=== PATIENT | female | born 1985 | race Two or more races ===

== ENCOUNTER 2016-07-13 04:26 | Day surgery (SDC) | payer BC ==
[~2016-07-13] VITALS: Ht 152.4 cm; Wt 53.0 kg
--- NOTE | ~2016-07-13 | HP ---
[facility] 31 Y [address] ROOM: [place] [address] LOCATION: [facility] ADMIT DATE: 07/13/2016 History & Physical DISCHARGE DATE: FAMILY PHYSICIAN: Tabitha Macedo MD ATTENDING PHYSICIAN: ELIDIA SUMMERS DATE OF SERVICE: CHIEF COMPLAINT: Right flank pain. HISTORY OF PRESENT ILLNESS: The patient is a pleasant, 31-year-old female who presents to Outpatient Surgery today for placement of indwelling right ureteral stent. The patient had been seen earlier this morning and discharged from the emergency room. She had presented with right flank pain which started around 2 a.m. this morning. She was also found to have a urinary tract infection with nitrite- positive urinalysis. She was given a dose of ceftriaxone in the emergency room and discharged from the emergency room over here to Outpatient Surgery. The patient has also underwent a CT scan and was found to have an obstructing distal 4 mm right ureteral calculus with associated hydronephrosis. She also had a very small nonobstructing right renal calculus as well. The patient denies any prior history of nephrolithiasis and denies any gross hematuria. She denies any fevers or chills. She did have a normal white blood cell count in the emergency room today. The patient is recently 3 months . The patient has no other concerns or complaints at this time. PAST MEDICAL HISTORY: Denies any significant past medical illnesses. PAST SURGICAL HISTORY: No prior surgery. FAMILY HISTORY: Denies any known family history of genitourinary abnormalities. SOCIAL HISTORY: The patient works as a schoolteacher. The patient otherwise denies any current tobacco or alcohol abuse. ALLERGIES: NO KNOWN DRUG ALLERGIES. REVIEW OF SYSTEMS: A full 89-kbdx-tlpmb review of systems was performed with pertinent positive and negative findings included in the History of Present Illness. All other systems were reviewed and are otherwise negative. PATIENT'S NAME: LISS HERBERTLA Cara [facility] AGE: 31 Y [address] ROOM: [place] [address] LOCATION: [facility] ADMIT DATE: 07/13/2016 History & Physical DISCHARGE DATE: FAMILY PHYSICIAN: Tabitha Macedo MD ATTENDING PHYSICIAN: ELIDIA SUMMERS MEDICATIONS: See attached medication list. PHYSICAL EXAMINATION: VITAL SIGNS: Stable. CONSTITUTIONAL: No acute distress. Hemodynamically stable. HEENT: Extraocular muscles intact. Mucous membranes moist. No drainage per ears or nose. CARDIAC: Good peripheral perfusion. RESPIRATORY: No audible wheezing or stridor, and respirations do not appear labored. ABDOMEN: Soft and nontender. PSYCHIATRIC: Normal affect and answers questions appropriately. HEMATOLOGIC: No active sites of bruising or bleeding. IMAGING: I personally reviewed the images of her recent CT scan with findings consistent with that above in the History of Present Illness. IMPRESSION: 1. Right 4 mm distal ureteral calculus. 2. Urinary tract infection. PLAN: I had a long discussion today with the patient regarding her treatment options along with their risks, benefits, indications, and alternatives. Given the obstructing ureteral calculus in the setting of urinary tract infection, I did recommend decompression with cystoscopy and stent placement. I also explained that we would not be treating the stone with ureteroscopy in the setting of urinary tract infection, but rather bring her back at a later date after she has been completely treated with the antibiotic. The patient's questions and concerns were addressed, and she has no further at this time, would like to proceed, and consents freely. ELIDIA SUMMERS MD GP/modl /[id number] PATIENT'S NAME: EDY HERBERT [facility] AGE: 31 Y [address] ROOM: [place] [address] LOCATION: [facility] ADMIT DATE: 07/13/2016 History & Physical DISCHARGE DATE: FAMILY PHYSICIAN: Tabitha Macedo MD ATTENDING PHYSICIAN: ELIDIA SUMMERS CC: Tabitha Macedo MD D: [id number] T: HISTORY & PHYSICAL
--- NOTE | ~2016-07-13 | OR ---
PATIENT'S NAME: EDY HERBERT [facility] AGE: 31 Y [address] ROOM: [address] [address] LOCATION: [facility] ADMIT DATE: 07/13/2016 OR/Procedure Report DISCHARGE DATE: FAMILY PHYSICIAN: Tabitha Macedo MD ATTENDING PHYSICIAN: ELIDIA GUILLEN SURGEON: Elidia Guillen MD FINANCIAL SERVICE REPRESENTATIVE: None. DATE OF PROCEDURE: 07/13/2016 PREOPERATIVE DIAGNOSES: 1. Urinary tract infection. 2. Right distal ureteral calculus. POSTOPERATIVE DIAGNOSES: 1. Urinary tract infection. 2. Right distal ureteral calculus. OPERATIVE PROCEDURES: Cystoscopy with placement of indwelling right ureteral stent. ANESTHESIA ADMINISTERED: Monitored anesthesia care. HISTORY OF PRESENT ILLNESS: The patient is a pleasant 31-year-old female with no prior history of nephrolithiasis, who had presented with right flank pain. She was found to have a 4 mm obstructing distal right ureteral calculus in the setting of urinary tract infection. The patient was explained the risks, benefits, indications, and alternatives to the above procedure, and wished to proceed and consented freely. DESCRIPTION OF OPERATION: The patient was brought back to the operating room where she was placed on the OR table in a supine position. A surgical time- out was called where patient identification, surgical site, and procedure were then verified. We also did verify that the patient received an IV Rocephin antibiotic prior to beginning the procedure. The patient then underwent successful administration of monitored anesthesia care. The patient then moved and placed in a low lithotomy position where she was then prepped and draped in the usual sterile fashion. I began by advancing a rigid cystoscope easily into the patient's urinary bladder. Her urethra was within normal limits. Full white cystoscopy was performed and her bladder was negative for any bladder tumors, cellules, or diverticula. Her ureteral orifices were noted to be in their orthotopic location. I then advanced a Sensor guidewire carefully navigating the wire past the level of the obstructing ureteral calculus. Then, over the wire, I advanced a 4.8-Luxembourger multi-length right ureteral stent deploying it noting a good curl fluoroscopically in the patient's right renal pelvis as well as a good curl visually in the patient's bladder. The patient did tolerate the procedure well. I then emptied the patient's bladder and the patient was then taken out of the lithotomy position PATIENT'S NAME: EDY HERBERT [facility] AGE: 31 Y [address] ROOM: [address] [address] LOCATION: [facility] ADMIT DATE: 07/13/2016 OR/Procedure Report DISCHARGE DATE: FAMILY PHYSICIAN: Tabitha Macedo MD ATTENDING PHYSICIAN: ELIDIA GUILLEN where she was awoken from monitored anesthesia care, transferred to recovery bed and transported to recovery room in good condition. COMPLICATIONS: None. DRAINS: Indwelling 4.8-Luxembourger multi-length right ureteral stent. SPECIMENS: None. FOLLOWUP PLAN: We will plan to discharge the patient home today from recovery on an antibiotic. We will then plan to see her back in approximately 10-14 days for definitive treatment of her ureteral stone with right ureteroscopy, laser lithotripsy, and stent exchange. ELIDIA GUILLEN MD GP/modl /[id number] d: 07/13/167 t: 07/21/162013, OPERATIVE SUMMARY
--- NOTE | ~2016-07-13 | ER ---
[facility] 31 Y [address] ROOM: [place] [address] LOCATION: [facility] ADMIT DATE: 07/13/2016 ER/Outpatient Report DISCHARGE DATE: FAMILY PHYSICIAN: Tabitha Macedo MD ATTENDING PHYSICIAN: ELIDIA SUMMERS Admission date and time documented on the medical record. I saw the patient at 0440 hours. CHIEF COMPLAINT: Right lower quadrant abdominal pain. HISTORY OF PRESENT ILLNESS: The patient is a 31-year-old female who comes in with onset of right lower quadrant abdominal pain that woke up her out of sleep around 0200 hours. Pain is located in the right lower quadrant. The patient has some nausea, but no vomiting. She had 2 episodes of diarrhea. No urinary frequency, urgency, or dysuria. No fever, chills, or sweats. No recent coughs, colds, or flus. No lightheadedness, dizziness, syncope, or near syncope. No headache or eyes, ears, nose, throat, neck, or spine pain. No chest pain or shortness of breath. No joint or muscle swelling, redness, or pain. No skin eruptions or rash. No neurologic changes, psychiatric issues, or endocrine problems. The patient is 3 months post vaginal delivery, . The patient is . No history of abdominal surgeries. HOME MEDICATIONS: See attached medication list. ALLERGIES: NONE. SOCIAL HISTORY: Nonsmoker, nondrinker. SIGNIFICANT PAST MEDICAL HISTORY: Negative. OPERATIONS: None. REVIEW OF SYSTEMS: All systems reviewed by me are negative with the exception of those discussed in the History of Present Illness. PHYSICAL EXAMINATION: VITAL SIGNS: Temperature 97.5, pulse 115, respirations 16, blood pressure 160/77, and O2 saturation on room air is 92%. PATIENT'S NAME: PIEDAD [facility] AGE: 31 Y [address] ROOM: [place] [address] LOCATION: [facility] ADMIT DATE: 07/13/2016 ER/Outpatient Report DISCHARGE DATE: FAMILY PHYSICIAN: Tabitha Macedo MD ATTENDING PHYSICIAN: ELIDIA SUMMERS HEENT: Head: Normocephalic. Eyes, Ears, Nose, and Throat: Clear. Mucous membranes moist. NECK: Negative. SPINE: Negative. LUNGS: Clear. No rales, rhonchi, or wheezes. HEART: Regular. Pulses are palpable. ABDOMEN: Soft. Some tenderness in the right lower quadrant, does guard there mildly. No CVA tenderness. No distention. EXTREMITIES: Intact. NEUROVASCULAR: Intact. SKIN: Clear. No skin eruptions or rash. LABORATORY DATA: CMS was normal except for a slightly low potassium of 3.4, low calcium of 7.8. Lactate 0.8. White count was 8600, segs 78, lymphs 14, monos 6, and eosinophils 1; hemoglobin is 12.1 with hematocrit 38.0; and platelet count was 194,000. Urine showed 5 to 10 whites, full-field reds, 0 to 2 epithelial cells, few bacteria, 2+ mucus per high-powered field, and positive nitrites. EMERGENCY DEPARTMENT COURSE: I did start the patient on IV normal saline and fluids. Gave her Zofran for nausea and vomiting, morphine IV for pain. The patient was sent to CT scan for CT scan of the abdomen and pelvis with IV contrast, results pending. IMPRESSION: Right lower quadrant abdominal pain, etiology uncertain. Rule out appendicitis. There is a possibility that she has a right ureteral stone. PLAN: Transferred the patient's care over to Dr. Leslie at shift change. I asked Dr. Leslie to follow up with the patient's CT scan of the abdomen and pelvis results, final diagnoses, and treatment plan. MD DOMINIC URIBE/modl /[id number] d: 07/13/16 1055 t: 07/13/16 1821, OUTPATIENT REPORT
--- NOTE | ~2016-07-13 | ER ---
PATIENT'S NAME: EDY HERBERT [facility] AGE: 31 Y [address] ROOM: [id number] [place], [place] [address] LOCATION: [facility] ADMIT DATE: 07/13/2016 ER/Outpatient Report DISCHARGE DATE: FAMILY PHYSICIAN: Tabitha Macedo MD ATTENDING PHYSICIAN: ELIDIA GUILLEN ADDENDUM: This is completion of ER encounter. I received hand-off of this patient at [address] Fonseca. Presentation was concerning for a kidney stone versus appendicitis as the patient has right-sided abdominal pain that radiates around to the back but not down into the groin. She has a history of UTIs and is three months and is breast-feeding. Upon my personal evaluation of the patient, she had pain that was adequately controlled after some morphine and received a L of fluid. Her labs were notable for procalcitonin that was undetectable. Grossly normal electrolytes with a creatinine of 0.6 and GFR greater than 60. Lactate was 0.8, white count was 8.6, hemoglobin 12.1, platelets of 194. Urinalysis was concerning for infection with 100 leukocytes, positive nitrites, and a micro consisting of 5-10 wbc's, a full field of rbc's, and 0-2 epithelial cells per high-power field with a few bacteria. Her CT scan came back notable for a 4 mm partially obstructing stone in the right proximal UVJ with moderate hydronephrosis. No other acute abnormalities other than an ovarian cyst, ipsilateral. The patient was ultimately given a gram of Rocephin for presumed UTI with infected stone. Based on the stones location, this explains her symptoms and blood in the urine. I contacted Dr. Guillen, on-call urologist and he will have the patient in the procedure suite today for a stent. She was taken to [facility] for preparation for her procedure. All questions were answered, urine culture was sent, and the patient was taken there in stable condition. MD ISABEL DUEÑAS/minnie /[id number] d: 07/13/16 1224 t: 07/24/16 2252, OUTPATIENT REPORT
[~2016-07-13 04:26] MED LIST: CEFTIN500 MG PO; MACROBID100 MG PO; MOTRIN800 MG PO; PERCOCET 5-3251 EACH; PERCOCET 5-3251 EACH PO; PRENATAL 1+1)(P1 TAB PO
[2016-07-13 05:00] LABS: BILIRUBIN URINE NEGATIVE (NEGATIVE); BLOOD URINE 250 /UL (NEGATIVE); COLOR URINE AMBER (YELLOW); GLUCOSE URINE NEGATIVE (NEGATIVE); KETONE URINE 150 mg/dL (NEGATIVE); LEUKOCYTES URINE 100 /UL (NEGATIVE); NITRITE URINE POSITIVE (NEGATIVE); PROTEIN URINE 100 mg/dL (NEGATIVE); SPEC GRAVITY URINE 1.025 (1.003-1.035); TURBIDITY URINE 3+ (CLEAR); UROBILINOGEN URINE 1 mg/dL (NORMAL)
[2016-07-13 05:11] LABS: BACTERIA URINE FEW (NEGATIVE); EPITHELIAL URINE 0-2 #/HPF (NEGATIVE); MUCUS URINE 2+ (NEGATIVE); RBC URINE FULL FIELD #/HPF (NEGATIVE)
[2016-07-13 05:23] LABS: BASOPHIL % 0.2 %; EOSINOPHIL # 0.1 K/uL (0.0-0.5); HEMOGLOBIN 12.1 g/dL (11.0-15.0); IMMATURE GRANULOCYTE % 0.5 %; LYMPHOCYTE # 1.2 K/uL (0.8-4.0); LYMPHOCYTE % 14.1 %; MCH 26.7 pg (27.0-34.0); MCHC 31.8 gm/dL (32.0-36.5); MCV 83.7 fl (83.0-98.0); MONOCYTE # 0.5 K/uL (0.0-1.0); MONOCYTE % 6.3 %; MPV 10.3 fl (9.4-12.4); NEUTROPHIL # (ANC) 6.7 K/uL (1.8-7.8); NEUTROPHIL % 77.9 %; NRBC % 0 /100WBC (0-0.00); PLATELET COUNT 194 K/uL (150-450); RBC 4.54 M/uL (3.50-5.50); RDW-CV 15.4 % (11.9-14.6); WBC 8.6 K/uL (4.0-11.0)
[2016-07-13 05:41] LABS: ALBUMIN 3.1 gm/dL (3.5-5.0); ALK PHOS 68 IU/L (33-138); ALT 16 IU/L (12-78); ANION GAP 13.4 (10.0-19.0); AST 11 IU/L (10-40); BLOOD UREA NITROGEN 12 mg/dL (6-24); CALCIUM 7.8 mg/dL (8.5-10.5); CHLORIDE 110 mMol/L (96-110); CO2 23 mMol/L (22-32); CREATININE 0.6 mg/dL (0.5-1.1); ESTIMATED GFR (MDRD EQUATION) > 60; POTASSIUM 3.4 mMol/L (3.7-5.1); SODIUM 143 mMol/L (135-145); TOTAL BILIRUBIN 0.3 mg/dL (0.0-1.5); TOTAL PROTEIN 6.9 g/dL (6.0-8.4)
[2016-07-13] MEDS ORDERED: TYLENOL325 MG PO (08:08)
[2016-07-13] MEDS ORDERED: KEFLEX500 MG PO (10:12)
[2016-07-31] MEDS ORDERED: IBUPROFEN800 MG PO (15:03)
== END 2016-07-13 11:53 | disposition disaster alternative care site (69) ==
LOC: GMED 04:26 → GSDC 07:35 → GPSCC 07:35 → GSDC 11:53
PROVIDERS: Emergency Medicine
PROC: 0T768DZ Dilation of Right Ureter with Intraluminal Device, Via Natural or Artificial Opening Endoscopic (ICD-10-PCS; principal; 2016-07-13)
DX: N13.2 Hydronephrosis with renal and ureteral calculous obstruction (principal); N39.0 Urinary tract infection, site not specified
CPT/HCPCS: C1769; C2617; J0696; J2270; J2405; J7030; Q9967

== ENCOUNTER → 2016-08-03 | Day surgery (SDC) | payer BC ==
[~2016-08-03] VITALS: Ht 152.4 cm; Wt 48.7 kg
[~2016-08-03] MED LIST changes: +IBUPROFEN800 MG PO; +KEFLEX500 MG PO; +TYLENOL325 MG PO
--- NOTE | ~2016-08-03 | OR ---
[facility] 31 Y [address] ROOM: [place] [address] LOCATION: [facility] ADMIT DATE: 08/03/2016 OR/Procedure Report DISCHARGE DATE: FAMILY PHYSICIAN: Tabitha Macedo MD ATTENDING PHYSICIAN: ELIDIA GUILLEN SURGEON: Elidia Guillen MD DIRECTOR OUTPATIENT SERVICES: None. DATE OF PROCEDURE: 08/03/2016 PREOPERATIVE DIAGNOSES: 1. Right distal ureteral calculus. 2. Indwelling right ureteral stent. 3. History of urinary tract infection. POSTOPERATIVE DIAGNOSES: 1. Right distal ureteral calculus. 2. Indwelling right ureteral stent. 3. History of urinary tract infection. PROCEDURES PERFORMED: 1. Right ureteroscopy with laser lithotripsy. 2. Ureteroscopic stone extraction. 3. Stent exchange. ANESTHESIA ADMINISTERED: Laryngeal mask airway anesthesia. INDICATIONS FOR PROCEDURE: The patient is a pleasant, 31-year-old female who had recently presented with right flank pain and was found to have a distal obstructing 4 mm right ureteral calculus in the setting of urinary tract infection. She underwent initial treatment with cystoscopy and placement of indwelling right ureteral stent on July 13, 2016. She did undergo a course of antibiotics, which she has completed. The patient was explained the risks, benefits, indications, and alternatives to the above procedure, wished to proceed, and consented freely. DESCRIPTION OF OPERATION: The patient was brought back to the operating room where she was placed on the OR table in the supine position. A surgical time- out was called where patient identification, surgical site, and procedure were then verified. We also did verify that the patient received IV Levaquin antibiotic within an hour of beginning the procedure. The patient was then moved and placed in a low lithotomy position. She was then prepped and draped in the usual sterile fashion. I began by advancing a rigid cystoscope easily into the patient's urinary bladder. Her urethra was within normal limits. Cystoscopy was performed, and there was no evidence of any bladder tumors, cellules, or diverticula. I did visualize the indwelling curl of the distal PATIENT'S NAME: PIEDAD [facility] AGE: 31 Y [address] ROOM: [place] [address] LOCATION: [facility] ADMIT DATE: 08/03/2016 OR/Procedure Report DISCHARGE DATE: FAMILY PHYSICIAN: Tabitha Macedo MD ATTENDING PHYSICIAN: ELIDIA GUILLEN ureteral stent, and this was pulled out through her urethral meatus using the stent graspers. Then, through the stent, I advanced a Sensor guidewire, carefully navigating the wire through the stent and up to the patient's right renal pelvis and then removed the stent, leaving the wire in place. Then, alongside the wire, I advanced the semi-rigid ureteroscope carefully into her bladder and then navigated into her distal right ureter. I did come across the distal right ureteral stone which appeared to be too large to extract in whole, so I utilized the 600 micron holmium laser fiber to carefully fragment the stone into smaller pieces and then used the [employer] stone basket to carefully entrap the fragments, and these were sent for stone analysis. I then carefully re-surveyed the ureter, and there was no evidence of any residual fragments, nor was there any evidence of ureteral injury. Then, over the remaining wire, I advanced a 4.8-Palauan multi-length right ureteral stent, deploying it, noting a good curl fluoroscopically in the patient's right renal pelvis as well as a good curl fluoroscopically within the bladder. Of note, I did leave strings attached to the distal curl of the stent. I then emptied her bladder, and she was then taken out of the lithotomy position where she was then awoken from general anesthesia, extubated, then transferred to the recovery bed, and transported to the recovery room in good condition. DRAINS: A 4.8-Palauan multi-length right ureteral stent. SPECIMENS: Stone for stone analysis. ESTIMATED BLOOD LOSS: Minimal. FOLLOWUP PLAN: We will plan to have the patient remove the stent at home this coming Sunday, and we will see her back for 4-weeks followup for discussing stone prevention with her. ELIDIA GUILLEN MD GP/modl /[id number] d: 08/03/16 1517 t: 08/04/16 1723, OPERATIVE SUMMARY
== END ==
LOC: GPOC 07-31 09:00 → GSDC 05:30
PROC: 0T768DZ Dilation of Right Ureter with Intraluminal Device, Via Natural or Artificial Opening Endoscopic (ICD-10-PCS; principal; 2016-08-03)
PROC: 0TC68ZZ Extirpation of Matter from Right Ureter, Via Natural or Artificial Opening Endoscopic (ICD-10-PCS; 2016-08-03)
DX: N20.1 Calculus of ureter (principal); N39.0 Urinary tract infection, site not specified; Z79.899 Other long term (current) drug therapy
CPT/HCPCS: C1769; C2617; J1100; J1956; J2001; J2405; J7030